=== PATIENT | male | born 1985 | race Caucasian/White ===

== ENCOUNTER 2017-03-15 13:31 | Emergency (ER) | payer MEDICAID, OTHER ==
[~2017-03-15] VITALS: Ht 185.4 cm; Wt 78.0 kg
[~2017-03-15 13:31] MED LIST: ASPI-535
[2017-03-15 13:34] VITALS: Ht 185.4 cm; Wt 78.0 kg
[2017-03-15] MEDS ORDERED: HYDROCODONE/APAP (5/325) TAB PO STA (15:01)
[2017-03-15] MEDS ORDERED: KETOROLAC 15 MG INJ IM STA (15:01)
--- NOTE | 2017-03-15 16:06 | RADRPT ---
PROCEDURE: XR left ankle. CLINICAL INDICATION: Injury with left ankle pain TECHNIQUE: AP , oblique and lateral views of theleft ankle were performed. COMPARISON: None. FINDINGS: There is normal mineralization and alignment. No fracture or osseous lesion is identified. The ankle mortis and talar dome are intact. Diffuse soft tissue swelling anterior and lateral to the ankle is present. There is no evidence for a radiopaque foreign body. RPTAT:HJJR IMPRESSION: Diffuse soft tissue swelling without acute osseous abnormality of the left ankle. Physician Maria Guadalupe Date Time Electronically viewed and signed by Physician Maria Guadalupe on 03/15/2017 16:06 /
--- NOTE | 2017-03-15 16:07 | RADRPT ---
PROCEDURE: XR left foot. CLINICAL INDICATION: Injury. Left foot pain TECHNIQUE: AP, lateral and oblique views of the left foot were obtained. COMPARISON: None. FINDINGS: Mineralization is within normal limits. No fracture or osseous lesion is identified. There is no e vidence for dislocation. The metatarsophalangeal, interphalangeal, and mid tarsal joint spaces are preserved. The soft tissues are unremarkable. There is no evidence for a radiopaque foreign body. IMPRESSION: Unremarkable left foot. RPTAT:HJJR Physician Maria Guadalupe Date Time Electronically viewed and signed by Physician Maria Guadalupe on 03/15/2017 16:06 /
[2017-03-15] MEDS ORDERED: NAPR-260 PO (16:13)
--- NOTE | 2017-03-15 17:47 | ERD ---
ER Documentation Chief Complaint Date/Time DATE: 03/15/17 TIME: 17:41 Chief Complaint LEFT ANKLE PAIN/ INJURY AFTER A FALL HPI This is a 31-year-old male presenting to the emergency department complaining of left foot and ankle pain status post inversion injury that occurred after a ground-level fall from walking down a few steps at 5:00 this morning. Patient states that pain is moderate to severe described as achiness. He admits to having swelling. Patient states that he was able to ambulate and was walking on it throughout work and the pain has progressed. Patient states that he took 2 aspirins this morning without any relief. ROS All systems reviewed and are negative except as per history of present illness. Medications Home Meds Active Scripts Naproxen* (Naprosyn*) 500 Mg Tablet, 500 MG PO BID Y for PAIN AND/OR INFLAMMATION, #30 TAB Prov:DIANE BOUDREAUX PA-C 03/15/17 Reported Medications Aspirin Ec (Aspir 81) 81 Mg Tablet. 03/31/12 Allergies Allergies: Coded Allergies: No Known Allergy (Unverified , 03/31/12) PMhx/Soc Medical and Surgical Hx: pt denies Medical Hx, pt denies Surgical Hx Hx Miscellaneous Medical Probl: No (DENIES SURGERIES/PMH) Hx Alcohol Use: No Hx Substance Use: No Hx Tobacco Use: No Physical Exam Vitals Vital Signs Date Time Temp Pulse Resp B/P Pulse Ox O2 Delivery O2 Flow Rate FiO2 03/15/17 13:34 98.2 115 20 141/67 95 Physical Exam General: WD/WN, in no apparent distress, non-toxic appearing HENT: NC/AT Eyes: Conjunctiva normal Neck: Supple Pulm: Clear to auscultation, normal labored breathing; no wheezing/rales/ rhonchi heard CV: Good capillary refill GI: Non-distended, no guarding Back: No masses Ext: Tenderness to palpation over the lateral malleolus and dorsal foot, moderate swelling and ecchymosis noted Neuro: plantar reflex intact, patellar reflex intact, +2 pedal pulses bilaterally, sensation intact Skin: intact Psych: Normal mood Results 24 hrs Current Medications Medications (Trade) Dose Ordered Sig/[place] Route PRN Reason Start Time Stop Time Status Last Admin Dose Admin Ketorolac Tromethamine (Toradol) 15 mg ONCE STAT IM 03/15/17 15:01 5/24/17 15:03 DC 03/15/17 15:23 Acetaminophen/ Hydrocodone Bitart ([place] (5/325)) 1 tab ONCE STAT PO 03/15/17 15:01 03/15/17 15:03 DC 03/15/17 15:23 Procedures/MDM 31-year-old male presents to the ER with ankle pain due to an inversion injury, likely due to ankle sprain. There is no evidence of compartment syndrome, neurologic injury, vascular injury, open joint, open fracture, tendon laceration , or foreign body due to physical examination and diagnostic testing. XR of the ankle was done and unremarkable. Patient was placed in a posterior splint and marcus bandage with good fit. Crutches were given. Patient's extremity symptoms have stabilized while they have been evaluated in the department and are appropriate for outpatient follow up. Prescription naproxen was given to patient, discussed to return to the ED if not improving as expected or worsening symptoms Patient was neurovascularly intact pre and post treatment. Patient understood and agreed with this plan. X-ray Ankle 3V Interpreted by radiologist and myself and radiologist: Diffuse soft tissue swelling without acute osseous abnormality of the left ankle. Bones: No fracture Joints: No dislocation XRAY of foot 3 V: unremarkable Splint Assessment: Neurovascularly intact post splint placement with good fit. Departure Diagnosis: Primary Impression: Ankle injury Additional Impression: Ankle sprain Condition: Stable Patient Instructions: R.I.C.E., What Are Ankle Sprains?, Treating Ankle Sprains Additional Instructions: Call your primary care doctor TOMORROW for an appointment during the next 1 WEEK.Tell the national secretary that you were referred from this facility.See the doctor sooner or return here if your condition worsens before your appointment time. Take all medicines as directed. Return to this facility if you are not improving as expected. DIANE BOUDREAUX PA-C March 15, 2017 17:47
== END 2017-03-15 16:48 | disposition home or self-care (01) ==
LOC: FTE 13:31
DX: S93.402A Sprain of unspecified ligament of left ankle, initial encounter (principal); W10.8XXA Fall (on) (from) other stairs and steps, initial encounter; Y92.9 Unspecified place or not applicable; Z79.82 Long term (current) use of aspirin
CPT/HCPCS: 29515; 73610; 73630; 96372; J1885; Z7502; Z7610